=== PATIENT | female | born 1965 | race African-American/Black ===

== ENCOUNTER 2017-01-05 06:55 | Emergency (ER) | payer OTHER ==
[2017-01-05] MEDS ORDERED: Amoxicillin/Potassium Clav 875 MG TAB ONE (07:28)
[2017-01-05] MEDS ORDERED: HYDROcodone/Acetaminophen 10/325 mg Tablet ONE (07:28)
[2017-01-05] MEDS ORDERED: Adacel (T-DAP) 0.5 ML VIAL ONE (07:34)
== END 2017-01-05 07:40 | disposition home or self-care (01) ==
LOC: NAV ERS 06:55
DX: M79.642 Pain in left hand (principal); Z87.891 Personal history of nicotine dependence; Z23 Encounter for immunization
CPT/HCPCS: 90471; 90715

== ENCOUNTER 2017-01-19 16:34 | Emergency (ER) | payer OTHER | END 2017-01-19 17:18 | disposition home or self-care (01) | LOC: NAV ERS 16:34 | DX: G56.02 Carpal tunnel syndrome, left upper limb (principal); I10 Essential (primary) hypertension; E78.5 Hyperlipidemia, unspecified; J45.909 Unspecified asthma, uncomplicated; Z87.891 Personal history of nicotine dependence; Z79.899 Other long term (current) drug therapy | CPT/HCPCS: 99283 ==

== ENCOUNTER 2019-03-17 17:32 | Emergency (ER) | payer OTHER | END 2019-03-17 17:55 | disposition home or self-care (01) | LOC: NAV ERS 17:32 | DX: H65.92 Unspecified nonsuppurative otitis media, left ear (principal); E78.5 Hyperlipidemia, unspecified; E78.00 Pure hypercholesterolemia, unspecified; F32.9 Major depressive disorder, single episode, unspecified; I10 Essential (primary) hypertension; J45.909 Unspecified asthma, uncomplicated; Z87.891 Personal history of nicotine dependence; Z79.899 Other long term (current) drug therapy | CPT/HCPCS: 99282 ==

== ENCOUNTER 2022-02-03 18:50 | Emergency (ER) | payer OTHER ==
[2022-02-03] MEDS ORDERED: Ibuprofen 200 MG TAB ONE (19:10)
[2022-02-03] MEDS ORDERED: Benzonatate 100 MG CAP ONE (20:05)
== END 2022-02-03 20:10 | disposition home or self-care (01) ==
LOC: NAV ERS 18:50
DX: J11.1 Influenza due to unidentified influenza virus with other respiratory manifestations (principal); I10 Essential (primary) hypertension; E78.00 Pure hypercholesterolemia, unspecified; J45.909 Unspecified asthma, uncomplicated; Z87.891 Personal history of nicotine dependence; Z79.899 Other long term (current) drug therapy
CPT/HCPCS: 87804; 99283

== ENCOUNTER 2022-03-19 12:49 | Emergency (ER) | payer OTHER ==
[2022-03-19] MEDS ORDERED: Ipratropium/Albuterol 3 ML NEB ONE (13:42)
== END 2022-03-19 14:12 | disposition home or self-care (01) ==
LOC: NAV ERS 12:49
DX: U07.1 COVID-19 (principal); J20.8 Acute bronchitis due to other specified organisms; J45.901 Unspecified asthma with (acute) exacerbation; E78.00 Pure hypercholesterolemia, unspecified; I10 Essential (primary) hypertension; F17.210 Nicotine dependence, cigarettes, uncomplicated
CPT/HCPCS: 87804; J7620; U0003; U0005

== ENCOUNTER 2023-04-06 19:53 | Emergency (ER) | payer OTHER ==
[2023-04-06] MEDS ORDERED: Ibuprofen 800 MG TAB ONE (20:39)
[2023-04-06] MEDS ORDERED: Benzonatate 100 MG CAP ONE (20:39)
[2023-04-06] MEDS ORDERED: Ondansetron ODT 4 MG TAB ONE (20:39)
[2023-04-06] MEDS ORDERED: Cyclobenzaprine 10 MG TAB ONE (21:42)
== END 2023-04-06 21:45 | disposition home or self-care (01) ==
LOC: NAV ERS 19:53
DX: J06.9 Acute upper respiratory infection, unspecified (principal); R11.0 Nausea; R52 Pain, unspecified; I10 Essential (primary) hypertension; E78.00 Pure hypercholesterolemia, unspecified; Z87.891 Personal history of nicotine dependence; Z79.899 Other long term (current) drug therapy
CPT/HCPCS: 87635; 87804; 99283; Q0162

== ENCOUNTER 2024-09-22 19:03 | Emergency (ER) | payer OTHER ==
[2024-09-22 20:02] LABS: Glucose, Urine (Dipstick) Negative (Negative); Leukocyte Trace (Negative); Protein, Urine (Dipstick) 30 mg/dL (Neg-Trace); Specific Gravity, Urine 1.020 (1.005-1.030)
[2024-09-22 20:12] LABS: CAUTI Indications for Culture Pelvic or flank pain; RBC/HPF 0-3 HPF (0-3); WBC/HPF 0-3 HPF (0-3)
[2024-09-22 20:13] LABS: Urine Culture Reflex No No
[2024-09-22 20:44] LABS: #Basophils 0.1 thou/uL (0.0-0.2); #Eosinophils 0.1 thou/uL (0.0-0.7); #Lymphocytes 3.0 thou/uL (1.20-3.40); #Monocytes 0.5 thou/uL (0.11-0.59); #Neutrophils 4.1 thou/uL (1.40-6.50); %Basophils 1.2 % (0.0-1.0); %Eosinophils 1.1 % (0.0-10.0); %Lymphocytes 38.7 % (21.0-51.0); %Monocytes 6.5 % (0.0-10.0); %Neutrophils 52.5 % (42.0-75.0); Hematocrit 36.3 % (36.0-47.0); Hemoglobin 11.0 g/dL (12.0-16.0); Mean Corpuscular Hemoglobin 25.1 pg (27.0-31.0); Mean Corpuscular Volume 82.6 fl (78.0-98.0); Platelet Count 314 10x3/uL (130-400); Red Blood Cell (RBC) Count 4.40 mill/uL (4.20-5.40); White Blood Cell (WBC) Count 7.9 10x3/uL (4.8-10.8)
[2024-09-22 21:04] LABS: ALT (SGPT) Less than 7 U/L (Less than 34); AST (SGOT) 15 U/L (11-34); Albumin 3.5 g/dL (3.1-4.5); Alkaline Phosphatase 70 U/L (40-110); Anion Gap 17 mmol/L (10-20); BUN (Urea Nitrogen) 19 mg/dL (9.8-20.1); Bilirubin, Total 0.1 mg/dL (0.3-1.2); Calc. Creatinine Clearance 0 mL/min (70-130); Calcium 9.8 mg/dL (7.8-10.44); Carbon Dioxide 23 mmol/L (22-29); Chloride 100 mmol/L (98-107); Globulin 7.0 g/dL (2.4-3.5); Glucose 119 mg/dL (70-105); Potassium 3.7 mmol/L (3.5-5.1); Sodium 136 mmol/L (136-145)
[2024-09-22 21:07] LABS: Troponin I 0.025 ng/mL (< 0.028)
== END 2024-09-22 21:12 | disposition home or self-care (01) ==
LOC: NAV ERS 19:03
DX: N76.0 Acute vaginitis (principal); B96.89 Other specified bacterial agents as the cause of diseases classified elsewhere; N39.0 Urinary tract infection, site not specified; I10 Essential (primary) hypertension; E78.00 Pure hypercholesterolemia, unspecified; J45.909 Unspecified asthma, uncomplicated; Z87.891 Personal history of nicotine dependence; Z79.51 Long term (current) use of inhaled steroids; Z79.84 Long term (current) use of oral hypoglycemic drugs; Z79.899 Other long term (current) drug therapy
CPT/HCPCS: 80053; 81001; 84484; 85025; 87086; 93005; 99283

== ENCOUNTER 2025-01-24 15:05 | Emergency (ER) | payer OTHER | END 2025-01-24 15:50 | disposition home or self-care (01) | LOC: NAV ERS 15:05 | DX: L03.112 Cellulitis of left axilla (principal); L03.317 Cellulitis of buttock; R68.83 Chills (without fever); M79.10 Myalgia, unspecified site; I10 Essential (primary) hypertension; E78.00 Pure hypercholesterolemia, unspecified; J45.909 Unspecified asthma, uncomplicated; Z79.51 Long term (current) use of inhaled steroids; Z79.899 Other long term (current) drug therapy; Z87.891 Personal history of nicotine dependence ==